=== PATIENT | female | born 1965 | race Caucasian/White ===

== ENCOUNTER 2017-01-11 00:16 | Emergency (ER) | payer OTHER ==
[~2017-01-11] VITALS: Ht 162.6 cm; Wt 106.9 kg
[2017-01-11 01:11] LABS: BASOPHIL COUNT 0.1 K/uL (0-0.1); EOSINOPHIL (%) 1.8 % (0-5); EOSINOPHIL COUNT 0.2 K/uL (0-0.3); HEMATOCRIT 46.8 % (36.0-46.0); IMMATURE GRANULOCYTE (%) 0.5 % (0.0-0.7); IMMATURE GRANULOCYTE COUNT 0.1 K/uL; INSTRUMENT ABS NEUTROPHIL CT 7.3 K/uL; LYMPHOCYTE COUNT 2.1 K/uL (1.0-2.8); MCH 30.3 PG (29.0-34.0); MCHC 33.8 G/DL (30.0-36.0); MCV 89.8 FL (83-99); MEAN PLAT.VOLUME 9.8 uM^3 (9.5-12.4); MONOCYTE (%) 6.9 % (3-12); MONOCYTE COUNT 0.7 K/uL (0-0.8); NEUTROPHIL (%) 69.4 % (45-76); NEUTROPHIL COUNT 7.3 K/uL (1.8-6.4); PLATELET COUNT 258 K/uL (156-360); RBC DIS.WIDTH-CV 12.9 % (11.8-14.6); RBC DIS.WIDTH-SD 42.3 % (39-53); RED BLOOD COUNT 5.21 M/uL (3.80-5.20); WHITE BLOOD COUNT 10.5 K/uL (4.1-10.2)
[2017-01-11 01:19] LABS: CHLORIDE 107 mEq/L (99-109); SODIUM 140 mEq/L (136-147)
[2017-01-11 01:21] LABS: GLUCOSE 91 mg/dL (70-99)
[2017-01-11 01:22] LABS: ANION GAP 13 MEQ/L (2-14)
[2017-01-11 01:23] LABS: TOTAL BILIRUBIN 0.5 mg/dL (0.0-1.0)
[2017-01-11 01:24] LABS: ALKALINE PHOSPHATASE 106 IU/L (3-129)
[2017-01-11 01:25] LABS: GFR ESTIMATE (CALCULATED) > 59 mL/min/
[2017-01-11 01:26] LABS: UREA NITROGEN (BUN) 14 mg/dL (9-23)
[2017-01-11] MEDS ORDERED: LIDOCAINE700 MG TD (03:07)
[2017-01-11] MEDS ORDERED: NORCO 5/3251 TABLET PO (03:07)
[2017-01-11 03:23] VITALS: BP 156/101
== END 2017-01-11 03:24 | disposition home or self-care (01) ==
LOC: EME 00:16
PROVIDERS: Emergency Medicine
DX: S20.211A Contusion of right front wall of thorax, initial encounter (principal); W19.XXXA Unspecified fall, initial encounter; Z95.5 Presence of coronary angioplasty implant and graft; F17.200 Nicotine dependence, unspecified, uncomplicated
CPT/HCPCS: 71020; 80053; 85025; 99281; 99283